=== PATIENT | female | born 1995 | race Caucasian/White ===

== ENCOUNTER 2017-05-17 10:06 | Outpatient (CLI) | payer OTHER ==
--- NOTE | 2017-05-17 12:40 | MRI ---
3MRI LUMBAR SPINE WITHOUT IV CONTRAST: DATE: 05/17/17. HISTORY: Localized low back pain with extension of pain into bilateral hips. Pain comes and goes. No numbnes s. COMPARISON: None available. FINDINGS: The conus medullaris is normal in appearance and terminates at the level of the L1 vertebral body. Normal signal intensity is demonstrated in the bone marrow. L1-2, L2-3, and L3-4 levels: There is no disk bulge or disk herniation. Central spinal canal and ne ural foramina are widely patent at these levels. L4-5 level: There is loss of intervertebral disk height. There is a broad-based disk-osteophyte com plex with central disk protrusion. There is mild effacement of the ventral aspect of the thecal sac. There is only minimal encroachment on each neural foramen. L5-S1 level: There is no disk bulge or disk herniation. Central spinal canal and neural foramen are patent. IMPRESSION: Disk bulge and central disk protrusion at the L4-5 level resulting in effacement of the ventral aspec t of the thecal sac. There is no significant neural foraminal narrowing. The remaining levels of th e lumbar spine demonstrate patency of the central spinal canal and neural foramina. POS: [facility]
== END 2017-05-17 10:07 | disposition home or self-care (01) ==
LOC: MRI 10:06
PROVIDERS: ATTEND Orthopaedic Surgery
DX: M54.5 Low back pain (principal); M51.26 Other intervertebral disc displacement, lumbar region
CPT/HCPCS: 72148

== ENCOUNTER 2018-10-17 08:56 | Outpatient (CLI) | payer OTHER ==
--- NOTE | 2018-10-17 09:18 | RAD ---
XR Tib Fib Lt Leg 2 View HISTORY: Tib-fib pain status post fall 6 weeks ago. COMPARISON: None. FINDINGS: There are no signs of fracture or dislocation. No other bony findings. IMPRESSION: Unremarkable left tib-fib.
--- NOTE | 2018-10-17 09:18 | RAD ---
XR Knee Lt 3 View HISTORY: Fall 6 weeks ago with persistent pain COMPARISON: None. FINDINGS: There are no signs of fracture, dislocation or joint effusion. If clinically indicated furt her assessment with MR would be suggested. IMPRESSION: Negative left knee.
[2018-10-17 09:50] LABS: #Basophils 0.1 thou/uL (0.0-0.2); #Eosinphils 0.1 thou/uL (0.0-0.7); #Lymphocytes 1.5 thou/uL (1.20-3.40); #Monocytes 0.4 thou/uL (0.11-0.59); #Neutrophils 3.3 thou/uL (1.40-6.50); %Basophils 1.9 % (0.0-1.0); %Eosinophils 1.5 % (0.0-10.0); %Monocytes 7.6 % (0.0-10.0); Hemoglobin 14.5 g/dL (12.0-16.0); Mean Corpuscular HGB CONC 33.8 g/dL (32.0-36.0); Mean Corpuscular Hemoglobin 30.4 pg (27.0-31.0); Mean Corpuscular Volume 89.8 fL (78.0-98.0); Mean Platelet Volume 6.5 fL (7.4-10.4); Platelet Count 288 thou/uL (130-400); RBC Distribution Width 12.6 % (11.5-14.5); Red Blood Cell (RBC) Count 4.78 mill/uL (4.20-5.40); White Blood Cell (WBC) Count 5.4 thou/uL (4.8-10.8)
[2018-10-17 10:04] LABS: ALT (SGPT) 22 U/L (8-55); AST (SGOT) 21 U/L (5-34); Albumin 4.5 g/dL (3.5-5.0); Alkaline Phosphatase 49 U/L (40-150); Anion Gap 14 mmol/L (10-20); BUN (Urea Nitrogen) 11 mg/dL (7.0-18.7); Bilirubin, Total 0.9 mg/dL (0.2-1.2); Calc. Creatinine Clearance 0 mL/min (70-130); Calcium 10.2 mg/dL (7.8-10.44); Carbon Dioxide 26 mmol/L (22-29); Cardiac Risk 1.7 (Less than 4.5); Chloride 103 mmol/L (98-107); Cholesterol 213 mg/dl (< 200 Desired); Estimated GFR-MDRD Greater than 90; Globulin 2.8 g/dL (2.4-3.5); Glucose 84 mg/dL (70-105); HDL Cholesterol 127 mg/dL (>60 Neg Risk); LDL Cholesterol, Calculated 76 mg/dL; Potassium 4.2 mmol/L (3.5-5.1); Protein, Total 7.3 g/dL (6.0-8.3); Sodium 139 mmol/L (136-145); Triglycerides 51 mg/dL (Less than 150)
[2018-10-17 11:18] LABS: Bilirubin Negative (Negative); Blood, Urine Small (Negative); Glucose, Urine (Dipstick) Negative (Negative); Leukocyte Negative (Negative); Nitrite Negative (Negative); Protein, Urine (Dipstick) Negative (Neg-Trace); Urobilinogen 0.2 mg/dL (Less than 2)
[2018-10-17 11:47] LABS: Bacteria/HPF 3+ HPF (None Seen); Clarity Slightly Cloudy (Clear); Epithelial Cast None Seen LPF (None Seen); RBC/HPF 0-3 HPF (0-3); WBC/HPF 0-3 HPF (0-3)
== END 2018-10-17 08:57 | disposition home or self-care (01) ==
LOC: SCSRAD 08:56
PROVIDERS: ATTEND Family Medicine
DX: Z00.00 Encounter for general adult medical examination without abnormal findings (principal); M25.562 Pain in left knee; R22.42 Localized swelling, mass and lump, left lower limb
CPT/HCPCS: 36415; 80053; 80061; 81001; 84443; 85025